=== PATIENT | male | born 1970 | race Two or more races ===

== ENCOUNTER 2025-02-27 18:57 | Inpatient (IN) | payer MEDICAID, OTHER ==
[~2025-02-27] VITALS: Ht 175.3 cm; Wt 74.7 kg
[~2025-02-27 18:57] MED LIST: ATOR-47 PO; CLOP75TA70 PO; FURO20TA4 PO; HYDR-4798 PO; IPRAAER6 PO; LEVO25TA6 PO; NALO1TAB4 PO; PANT40T PO; POTA8TAB38 PO; PREG150C63 PO
[2025-02-27 19:20] LABS: Basophils # (auto) 0.1 10 ^3/uL (0-0.2); Basophils % (auto) 0.8 % (0.0-2.0); Eosinophils # (auto) 0.1 10 ^3/uL (0-0.8); Eosinophils % (auto) 0.7 % (0.0-7.0); Hematocrit 33.4 % (41.0-53.0); Hemoglobin 11.2 g/dL (13.5-17.5); Lymphocytes # (auto) 1.9 10 ^3/uL (0.4-5.4); Lymphocytes % (auto) 16.9 % (10.0-50.0); Mean Corpuscular Hemoglobin 28.2 pg (28.0-32.0); Mean Corpuscular Hgb Conc. 33.6 g/dL (32.0-36.0); Mean Corpuscular Volume 83.8 fL (80.0-100.0); Monocytes # (auto) 0.8 10 ^3/uL (0-1.3); Monocytes % (auto) 6.9 % (0.0-12.0); Neutrophils # (auto) 8.6 10 ^3/uL (1.6-8.6); Neutrophils % (auto) 74.7 % (37.0-80.0); Nucleated Red Blood Cells % 0.1 %; Platelet Count (auto) 219 10^3/uL (140-450); Red Blood Cells 3.98 10^6/uL (4.5-5.90); Red Cell Distribution Width 14.6 % (11.8-14.3); White Blood Cell 11.5 10^3/uL (4.4-10.8)
[2025-02-27 19:35] LABS: Anion Gap 11 (5-15); Carbon Dioxide 22 mmol/L (20-31); Sodium 145 mmol/L (136-145)
--- NOTE | 2025-02-27 19:35 | ED.PDOC ---
History of Present Illness HPI Comments 54 y/o, wheelchair-bound M, with a history of right AKA, is [id number] for 4x day history of shortness of breath. Patient reports on, usually, using his nebulizer 3x/day and states on running out of it 4x days ago. He denies any chest pain, cough, congestion, fever, chills, or further associated symptoms. Chief Complaint: Shortness of Breath Time Seen by MD: 19:25 Reviewed Notes: Nurses Notes, Medications, Allergies Allergies: Coded Allergies: Codeine (Verified Allergy, Unknown, 02/27/25) Morphine (Verified Allergy, Unknown, 02/27/25) Information Source: Patient Mode of Arrival: Ambulatory Severity: Moderate Timing: Days Duration: Since onset Prehospital treatment: None Past Medical History PAST MEDICAL HISTORY: Asthma Past Medical History (Other): Home nebulizer use Surgical History: AKA (Right ) All Other Systems: Reviewed and Negative (Comprehensive systems review obtained and negative except for what is stated in the HPI.) Physical Exam General Appearance: No Apparent Distress, Normal HEENT: Normal ENT Inspection, Pharynx Normal, TMs Normal Neck: Full Range of Motion, Non-Tender, Normal, Normal Inspection Respiratory: Chest Non-Tender, No Accessory Muscle Use, No Respiratory Distress, Wheezing (Diffused scattered wheezes, bilaterally) Cardiovascular: No Edema, No JVD, No Murmur, No Gallop, Normal Peripheral Pulses, Regular Rate/Rhythm Breast Exam: Deferred Gastrointestinal: No Organomegaly, Non Tender, No Pulsatile Mass, Normal Bowel Sounds, Soft Genitalia: Deferred Pelvic: Deferred Rectal: Deferred Extremities: No calf tenderness, Normal capillary refill, Normal inspection, Normal range of motion, Non-tender, No pedal edema Musculoskeletal : Apperance: Normal Neurologic: Alert, program manufacturing leader II-XII nml as Tested, No Motor Deficits, Normal Affect, Normal Mood, No Sensory Deficits Cerebellar Function: Normal Reflexes: Normal Skin: Dry, Normal Color, Warm Lymphatic: No Adenopathy Was a procedure done? Was a procedure done?: No Differential Dx Considerations may include: URI, PNA, PE, PA, viral syndrome, asthma exacerbation, medication noncompliance, among others X-Ray, Labs, Meds, VS Vital Signs Date Time Temp Pulse Resp B/P (MAP) Pulse Ox O2 Delivery O2 Flow Rate FiO2 02/27/25 19:13 97.4 62 16 123/73 (90) 95 97.4 Lab Test 02/27/25 19:09 Range/Units White Blood Count 11.5 H 4.4-10.8 10^3/uL Red Blood Count 3.98 L 4.5-5.90 10^6/uL Hemoglobin 11.2 L 13.5-17.5 g/dL Hematocrit 33.4 L 41.0-53.0 % Mean Corpuscular Volume 83.8 80.0-100.0 fL Mean Corpuscular Hemoglobin 28.2 28.0-32.0 pg Mean Corpuscular Hemoglobin Concent 33.6 32.0-36.0 g/dL Red Cell Distribution Width 14.6 H 11.8-14.3 % Platelet Count 219 140-450 10^3/uL Mean Platelet Volume 9.4 6.9-10.8 fL Neutrophils (%) (Auto) 74.7 37.0-80.0 % Lymphocytes (%) (Auto) 16.9 10.0-50.0 % Monocytes (%) (Auto) 6.9 0.0-12.0 % Eosinophils (%) (Auto) 0.7 0.0-7.0 % Basophils (%) (Auto) 0.8 0.0-2.0 % Neutrophils # (Auto) 8.6 1.6-8.6 10 ^3/uL Lymphocytes # (Auto) 1.9 0.4-5.4 10 ^3/uL Monocytes # (Auto) 0.8 0-1.3 10 ^3/uL Eosinophils # (Auto) 0.1 0-0.8 10 ^3/uL Basophils # (Auto) 0.1 0-0.2 10 ^3/uL Nucleated Red Blood Cells 0.1 % Sodium Level 145 136-145 mmol/L Potassium Level 3.0 L 3.5-5.1 mmol/L Chloride Level 112 H 98-107 mmol/L Carbon Dioxide Level 22 20-31 mmol/L Anion Gap 11 5-15 Blood Urea Nitrogen 12 9-23 mg/dL Creatinine 0.94 0.700-1.30 mg/dL Glomerular Filtration Rate Calc 95 >90 mL/min BUN/Creatinine Ratio 12.8 10.0-20.0 Serum Glucose 127 H 74-106 mg/dL Calcium Level 9.2 8.7-10.4 mg/dL Troponin I High Sensitivity 43 </=54 ng/L B-Type Natriuretic Peptide 2058.17 0-100 pg/mL Time of 1ST Reevaluation: 19:55 Reevaluation 1ST: Unchanged Patient Education/Counseling: Diagnosis, Treatment, Need For Follow Up Family Education/Counseling: Diagnosis, Treatment, Need For Follow Up SEPSIS Sepsis Screen Date sepsis recognized/suspect: Feb 27, 2025 Time Sepsis recognized/suspect: 1902 Recent Procedure: No On Antibiotic Therapy: No Respiratory Rate >20: No Heart Rate >90: No Temp<36 C (96.8 F) or >38.3 C: No SBP <90 or MAP <65 mmHG: No New Acute Mental Status Change: No Is the patient on CPAP, BIPAP,: No Orders/Vitals/Labs Physician Orders Chest Portable (02/27/25 19:03) Electrocardigram (02/27/25 19:03) Troponin-I Hs (02/27/25 22:03) Potassium Er Tablet (Klor-Con Tablet) (02/27/25 20:15) Furosemide Injection (Lasix Injection) (02/27/25 20:15) Aspirin Tablet (02/27/25 20:15) Vital Signs Date Time Temp Pulse Resp B/P (MAP) Pulse Ox O2 Delivery O2 Flow Rate FiO2 02/27/25 19:13 97.4 62 16 123/73 (90) 95 97.4 Laboratory Tests Test 02/27/25 19:09 White Blood Count 11.5 10^3/uL (4.4-10.8) H Departure 1 Departure Time of Disposition: 20:10 Impression: Primary Impression: Acute diastolic (congestive) heart failure Additional Impression: Acute coronary syndrome Disposition: ADMITTED INPATIENT Admit to: Tele Condition: Guarded Discharged With: Self Comments Shortness of Breath with Chest Tightness Chief Complaint: Shortness of breath worsening over 3 days with chest tightness History of Present Illness: 54-year-old male with a history of asthma and right leg amputation presents to the ED with complaints of shortness of breath that has been progressively worsening over the past 3 days. The patient reports partial improvement with albuterol nebulizer treatments at home, but states he has run out of his medication. He also describes chest tightness for the past day. The patient has known asthma but the presentation is concerning for cardiac etiology given the chest tightness and elevated BNP levels. The patient requires admission for management of acute coronary syndrome and acute diastolic congestive heart failure. Review of Systems: Respiratory: Shortness of breath, worsening over 3 days. Cardiovascular: Chest tightness for 1 day. All other systems: Unable to obtain due to acute presentation. Medications: Albuterol nebulizer (recently ran out) Other home medications: Not documented in wealth management director Allergies: No known allergies documented in wealth management director Past Medical History: Asthma Right leg amputation Possible underlying cardiac disease (given current presentation) Past Surgical History: Right above-knee amputation Physical Exam: General: Not documented in wealth management director HEENT: Not documented in wealth management director Cardiovascular: Not documented in wealth management director Respiratory: Mildly diminished breath sounds in bilateral bases Abdomen: Not documented in wealth management director Extremities: Right leg above-knee amputation Neurological: Not documented in wealth management director Lab Results: CBC: - WBC: 11.5 (mildly elevated) - Hemoglobin: 11.2 - Hematocrit: 33.4 - Platelets: 219 Chemistry: - Potassium: 3.0 (low) - Other chemistry values unremarkable Cardiac markers: - Troponin: 43 (within normal limits) - BNP: 2,058 (significantly elevated) Imaging and Other Relevant Results: Chest X-ray: Findings consistent with congestive heart failure Medical Decision Making: Summary Statement: 54-year-old male with history of asthma and right leg amputation presenting with worsening shortness of breath and chest tightness, fo und to have elevated BNP and radiographic evidence of CHF. Problem List: 1. Acute diastolic congestive heart failure 2. Acute coronary syndrome 3. Hypokalemia 4. Asthma 5. Right above-knee amputation Differential Diagnosis: Acute diastolic heart failure, acute coronary syndrome, asthma exacerbation, pneumonia, pulmonary embolism, COPD exacerbation, anemia. ED Course: Patient presented with shortness of breath and chest tightness. Labs revealed elevated BNP, mild leukocytosis, and hypokalemia. Chest X-ray showed findings consistent with CHF. Patient was treated with aspirin and Lasix in the ED. Decision made to admit for management of acute coronary syndrome and acute diastolic heart failure. Assessment and Plan: 1. Acute Diastolic Congestive Heart Failure: - Elevated BNP at 2,058 - Chest X-ray showing findings consistent with CHF - Initiated Lasix in ED - Admit for further management including IV diuresis, daily weights, strict I/Os - Monitor respiratory status and oxygen requirements - Consider echocardiogram to assess cardiac function 2. Acute Coronary Syndrome: - Presenting with chest tightness - Initial troponin within normal limits (43) - Administered aspirin in ED - Admit for serial cardiac enzymes, ECG monitoring - Consider cardiology consultation for management and possible cardiac catheterization 3. Hypokalemia (K 3.0): - Initiate potassium replacement - Monitor levels closely, especially with diuretic therapy - Assess for underlying causes 4. Asthma: - Currently not the primary issue but may be contributing to symptoms - Resume albuterol treatments - Consider adding inhaled corticosteroids 5. Right Above-Knee Amputation: - Ensure appropriate accommodations during hospitalization - Physical therapy consultation as needed Disposition: Admit to telemetry unit under cardiology service Additional Notes: Patient admitted for acute coronary syndrome and acute diastolic congestive heart failure Billing Information: ICD-10: I50.31 - Acute diastolic (congestive) heart failure ICD-10: I20.9 - Acute coronary syndrome, unspecified ICD-10: J45.909 - Unspecified asthma, uncomplicated ICD-10: Z89.611 - Acquired absence of right leg above knee ICD-10: E87.6 - Hypokalemia Critical Care Note Critical Care Time?: Yes (35 min-critical care time only) Critical care comment: Total critical care time: Approximately 36 minutes Due to a high probability of clinically significant, life threatening deterioration, the patient required my highest level of preparedness to i ntervene emergently and I personally spent this critical care time directly and personally managing the patient. This critical care time included obtaining a history; examining the patient; pulse oximetry; ordering and review of studies; arranging urgent treatment with development of a management plan; evaluation of patient's response to treatment; frequent reassessment; and, discussions with other providers. This critical care time was performed to assess and manage the high probability of imminent, life-threatening deterioration that could result in multi-organ failure. It was exclusive of separately billable procedures and treating other patients. Stability Stability form required: No Heart Score Heart Score: Heart Score Response (Comments) Value History Moderate Suspicious 1 EKG Repolarization Disturb 1 Age 45-64 1 Risk Factors 1 or 2 risk factors 1 Troponin Normal limit 0 Total 4 I personally scribed for HOPE BRYANT MD ([email or web address]) on 02/27/25 at 19:34. Electronically submitted by Mark Ley ([email or web address]). HOPE BRYANT MD Feb 27, 2025 19:34
[2025-02-27 19:36] LABS: Calcium 9.2 mg/dL (8.7-10.4)
--- NOTE | 2025-02-27 19:39 | DVH ---
CHEST RADIOGRAPH Indication: SOB Technique: Single frontal view of the chest was obtained Comparison: None FINDINGS: Lines and Tubes: Dual-chamber AICD pacemaker in place pulse generator over the left chest. There are no prior studies for comparison Lungs: Bilateral perihilar airspace disease seen extending into the lower lung [place]. Pleura: No effusion. No pneumothorax. Cardiomediastinal contours: Cardiomegaly Bones: No acute osseous abnormality. IMPRESSION: 1. Findings may represent congestive failure or pneumonia. HS:Y
[2025-02-27 19:41] LABS: BUN/Creatinine Ratio 12.8 (10.0-20.0); Blood Urea Nitrogen 12 mg/dL (9-23)
[2025-02-27 19:50] LABS: Chloride 112 mmol/L (98-107); Glucose 127 mg/dL (74-106)
[2025-02-27] MEDS: ALBUTEROL SULF 2.5 MG/0.5ML(0.5%) NEB SOLN NEB ONE ×2 (20:18→22:30)
[2025-02-27 20:30] VITALS: BP 113/70; PULSE 94; RESP 20; TEMP 98.5; O2SAT 95
[2025-02-27] MEDS: ASPirin 81 mg TAB PO ONE (22:00)
[2025-02-27] MEDS: POTASSIUM CHL 20 Meq TABLET PO ONE (22:00)
[2025-02-27] MEDS ORDERED: POLYETHYLENE GLYCOL 17 GM PWDR PO PRN (22:00)
[2025-02-27] MEDS: predniSONE 20 MG TAB PO ONE (22:00)
[2025-02-27] MEDS: IPRATROPIUM BROM 0.5 MG/2.5ML INH SOL NEB ONE (22:30)
[2025-02-27] MEDS: FUROSEMIDE 20 MG/2 ML VIAL IV ONE ×2 (22:32→22:33)
[2025-02-27] MEDS: ATORVASTATIN 20 MG TAB PO SCH (22:37)
[2025-02-28] VITALS (17 sets, daily range): BP systolic 119–135; BP diastolic 82–89; PULSE 87–107; RESP 16–20; TEMP 97.3–98.4; O2SAT 95–100
--- NOTE | 2025-02-28 01:14 | DVHHPRES ---
History of Present Illness Resident Creating Document: MOI SWAIN RESIDENT History of Present Illness Patient is a 54-year-old male with a significant history of coronary artery disease as explained below presented to the ED with a chief complaint of worsening shortness of breath since the last week. Patient at home takes Lasix daily but apparently he ran out of it his medications week ago and started to have shortness of breath, now NYHA class 3. Patient denied any chest pain, palpitations, headache. Patient reported he currently smokes 4-5 joints of marijuana every day and uses Yupelri med neb and Combivent inhaler as needed, reportedly also ran out of his nebulizer. He he reports of left lower extremity swelling in the last 3-4 days which apparently has gone down. Patient denies any fever, cough, recent sick contacts. Past medical history: Coronary artery disease with [place] x3, multiple coronary angiogram with multiple percutaneous interventions and 7 drug-eluting stents placed over the last 1 year, ischemic cardiomyopathy, heart failure with reduced ejection fraction , peripheral artery disease Past surgical history: Right above-knee amputation, s/p biventricular AICD, intra-aortic balloon pump, multiple PCI with 7 MC Social history: Patient currently smokes 4-5 joints of marijuana every day, denies tobacco, alcohol, any other drug use Home medications: Lasix 20 mg daily, Protonix 40 mg daily, atorvastatin 80, levothyroxine 25 mcg, pregabalin 100 q.i.d., mirtazapine 7.5, Plavix, aspirin Review of Systems Review of Systems Patient seen and examined at the bedside Reports of shortness of breath on walking Denies chest pain, palpitations Allergies: Coded Allergies: Codeine (Verified Allergy, Unknown, 02/27/25) Morphine (Verified Allergy, Unknown, 02/27/25) Medications Current Medications Medications Dose Ordered Sig/El Route Start Time Stop Time Status Last Admin Dose Admin Albuterol 2.5 mg Q6HWA NEB 02/28/25 06:00 Ipratropium [place] 0.5 mg Q6HWA NEB 02/28/25 06:00 Clopidogrel Bisulfate 75 mg DAILY PO 02/28/25 10:00 Aspirin 81 mg DAILY PO 02/28/25 10:00 Furosemide 40 mg DAILY IV 02/28/25 10:00 Acetaminophen/ Hydrocodone Bitart 1 tab Q8HP PRN PO 02/27/25 22:00 Pantoprazole Sodium 40 mg DAILY@0600 PO 02/28/25 06:00 Levothyroxine Sodium 25 mcg QAM@0600 PO 02/28/25 06:00 Atorvastatin Calcium 80 mg HS PO 02/27/25 22:00 02/27/25 22:37 80 MG Polyethylene Glycol 17 gm DAILYPRN PRN PO 02/27/25 22:00 Exam Vital Signs Vital Signs Date Time Temp Pulse Resp B/P (MAP) Pulse Ox O2 Delivery O2 Flow Rate FiO2 02/27/25 23:38 98.5 91 16 113/70 (84) 100 98.5 02/27/25 22:31 Room Air* 0 21 Exam Gen - no pallor, mild icterus, no cyanosis, no clubbing, no LAD, no edema . Skin - Patients skin is warm and dry. HEENT - normocephalic, atraumatic, moist mucous membranes. Neck - full ROM, no LAD, no JVD Pulmonary - B/L equal breath sounds with basilar crackles, no wheezing, no stridor. cardiovascular - faint S1,S2 heard. peripheral pulses normal radial 2+, left dorsalis pedal 2+. capillary refill normal <2 secs. GI - soft, nontender abdomen. no hepatospleenomegaly. Bowel sounds normoactive Neurological - Patient is A/O X 3 . Bilateral upper extremity strength 5/5, left lower extremity strength 5/5, right AKA no facial droop, normal speech, no tremor, no sensory deficiets. Labs/Xrays Labs Test 02/27/25 20:23 02/27/25 19:09 Range/Units Troponin I High Sensitivity 44 </=54 ng/L White Blood Count 11.5 H 4.4-10.8 10^3/uL Red Blood Count 3.98 L 4.5-5.90 10^6/uL Hemoglobin 11.2 L 13.5-17.5 g/dL Hematocrit 33.4 L 41.0-53.0 % Mean Corpuscular Volume 83.8 80.0-100.0 fL Mean Corpuscular Hemoglobin 28.2 28.0-32.0 pg Mean Corpuscular Hemoglobin Concent 33.6 32.0-36.0 g/dL Red Cell Distribution Width 14.6 H 11.8-14.3 % Platelet Count 219 140-450 10^3/uL Mean Platelet Volume 9.4 6.9-10.8 fL Neutrophils (%) (Auto) 74.7 37.0-80.0 % Lymphocytes (%) (Auto) 16.9 10.0-50.0 % Monocytes (%) (Auto) 6.9 0.0-12.0 % Eosinophils (%) (Auto) 0.7 0.0-7.0 % Basophils (%) (Auto) 0.8 0.0-2.0 % Neutrophils # (Auto) 8.6 1.6-8.6 10 ^3/uL Lymphocytes # (Auto) 1.9 0.4-5.4 10 ^3/uL Monocytes # (Auto) 0.8 0-1.3 10 ^3/uL Eosinophils # (Auto) 0.1 0-0.8 10 ^3/uL Basophils # (Auto) 0.1 0-0.2 10 ^3/uL Nucleated Red Blood Cells 0.1 % Sodium Level 145 136-145 mmol/L Potassium Level 3.0 L 3.5-5.1 mmol/L Chloride Level 112 H 98-107 mmol/L Carbon Dioxide Level 22 20-31 mmol/L Anion Gap 11 5-15 Blood Urea Nitrogen 12 9-23 mg/dL Creatinine 0.94 0.700-1.30 mg/dL Glomerular Filtration Rate Calc 95 >90 mL/min BUN/Creatinine Ratio 12.8 10.0-20.0 Serum Glucose 127 H 74-106 mg/dL Calcium Level 9.2 8.7-10.4 mg/dL B-Type Natriuretic Peptide 2058.17 0-100 pg/mL Assessment/Plan Assessment/Plan Acute on chronic heart failure with reduced ejection fraction, NYHA class III Ischemic cardiomyopathy S/p biventricular AICD S/p PCI with the 7 MC - BNP elevated - chest x-ray shows cardiomegaly with pulmonary vascular congestion, bilateral airspace opacities likely fluid overload - ECG showed atrial sensed ventricular paced complexes with QRS more than 120 ms likely RSR in V5 V6 - started on Lasix 40 mg IV - duo nebs q.8 hours - aspirin and Plavix - atorvastatin 80 - last echocardiogram in December 2024 shows left atrial enlargement, right atrial enlargement, left ventricular enlargement, EF less than 20%, severe pulmonary artery hypertension H/o hypothyroidism - levothyroxine 25 mcg Chronic back pain Constipation - continued on [place] - MiraLax PRN PUD prophylaxis: Protonix Goals of care discussed with the patient for over 25 minutes. Full code Time spent: 41 minutes Plan discussed with Dr. Osborne Plan discussed with: Patient My Orders Orders - MOI SWAIN Procedure Category Date Status Time Admit ADMIT 02/27/25 Transmitted 21:59 Oxygen By Nasal RT 02/27/25 Transmitted Cannula 21:59 Color Consultant For YANETH 02/27/25 In Process 24 Hours 21:59 Emergency Dysrhythmia YANETH 02/27/25 In Process Protocol 21:59 Stat Ekg For Chest YANETH 02/27/25 In Process Pain 21:59 Notify Md Of Changes YANETH 02/27/25 In Process From Base 21:59 Albuterol Medneb PHA 02/28/25 In Process (Ventolin Medneb) 06:00 Ipratropium Medneb PHA 02/28/25 In Process (Atrovent Medneb) 06:00 Clopidogrel Bisulfate PHA 02/28/25 In Process (Plavix) 10:00 Aspirin Tablet PHA 02/28/25 In Process 10:00 Furosemide Injection PHA 02/28/25 In Process (Lasix Injection) 10:00 Hydrocodone-Acet PHA 02/27/25 In Process 10/325mg Tab ([place] 22:00 Pantoprazole Tablet PHA 02/28/25 In Process (Protonix Tablet) 06:00 Levothyroxine Tablet PHA 02/28/25 In Process (Synthroid Tablet) 06:00 Atorvastatin (Lipitor) PHA 02/27/25 In Process 22:00 Echo 2d Mode Cardiac US 02/27/25 Logged DOP 21:59 Polyethylene Glycol PHA 02/27/25 In Process 17g Powder (Miralax 22:00 Urinalysis LAB 02/27/25 Logged 21:59 Rapid Influenza A&B LAB 02/27/25 Logged 21:59 Covid19 Antigen Yulia LAB 02/27/25 Logged Date of Service: Feb 27, 2025 Billing Provider: JENNIFER OSBORNE MD Common Visit Codes: [id number] INP/OBS CARE (HIGH) Secondary Visit Codes: [id number] CARE PLAN 30 MINUTES MOI SWAIN RESIDENT Feb 28, 2025 01:14
[2025-02-28 02:54] LABS: Rapid Influenza A Negative (Negative); Rapid Influenza B Negative (Negative)
[2025-02-28 02:55] LABS: COVID19 ANTIGEN SOFIA FIA NEGATIVE (NEGATIVE)
[2025-02-28] MEDS: PANTOPRAZOLE 40 MG TAB PO SCH (05:47)
[2025-02-28] MEDS: LEVOTHYROXINE SODIUM 25 MCG TAB PO SCH (05:47)
[2025-02-28] MEDS ORDERED: ALBUTEROL SULF 2.5 MG/0.5ML(0.5%) NEB SOLN NEB SCH (06:00)
[2025-02-28] MEDS ORDERED: IPRATROPIUM BROM 0.5 MG/2.5ML INH SOL NEB SCH (06:00)
[2025-02-28] MEDS: IPRATROPIUM BROM 0.5 MG/2.5ML INH SOL NEB SCH (06:48)
[2025-02-28] MEDS: ALBUTEROL SULF 2.5 MG/0.5ML(0.5%) NEB SOLN NEB SCH (06:48)
[2025-02-28 08:50] LABS: Basophils # (auto) 0 10 ^3/uL (0-0.2); Basophils % (auto) 0.3 % (0.0-2.0); Eosinophils # (auto) 0 10 ^3/uL (0-0.8); Eosinophils % (auto) 0.3 % (0.0-7.0); Hematocrit 33.6 % (41.0-53.0); Hemoglobin 11.5 g/dL (13.5-17.5); Lymphocytes # (auto) 0.7 10 ^3/uL (0.4-5.4); Lymphocytes % (auto) 6.8 % (10.0-50.0); Mean Corpuscular Hemoglobin 28.9 pg (28.0-32.0); Mean Corpuscular Hgb Conc. 34.3 g/dL (32.0-36.0); Mean Corpuscular Volume 84.3 fL (80.0-100.0); Monocytes # (auto) 0.2 10 ^3/uL (0-1.3); Monocytes % (auto) 1.9 % (0.0-12.0); Neutrophils # (auto) 9.1 10 ^3/uL (1.6-8.6); Neutrophils % (auto) 90.7 % (37.0-80.0); Nucleated Red Blood Cells % 0.1 %; Platelet Count (auto) 204 10^3/uL (140-450); Red Blood Cells 3.98 10^6/uL (4.5-5.90); Red Cell Distribution Width 14.9 % (11.8-14.3)
[2025-02-28 09:08] LABS: Alanine Aminotransferase 35 U/L (7-40); Albumin 4.4 g/dL (3.2-4.8); Alkaline Phosphatase 91 U/L (46-116); Anion Gap 13 (5-15); Aspartate Aminotransferase 27 U/L (<34); BUN/Creatinine Ratio 12.6 (10.0-20.0); Blood Urea Nitrogen 11 mg/dL (9-23); Calcium 9.4 mg/dL (8.7-10.4); Carbon Dioxide 21 mmol/L (20-31); Sodium 145 mmol/L (136-145); Total Protein 7.2 g/dL (5.7-8.2)
[2025-02-28 09:09] LABS: Bilirubin, Total 4.5 mg/dL (0.2-1.0); Chloride 111 mmol/L (98-107); Glucose 160 mg/dL (74-106); Potassium 3.3 mmol/L (3.5-5.1)
[2025-02-28 09:19] LABS: Magnesium 1.9 mg/dL (1.6-2.6)
[2025-02-28] MEDS: ASPirin 81 mg TAB PO SCH (09:53)
[2025-02-28] MEDS: CLOPIDOGREL BISULFATE 75 MG TAB PO SCH (09:53)
[2025-02-28] MEDS: FUROSEMIDE 40 MG/4 ML VIAL IV SCH (09:55)
[2025-02-28] MEDS: HYDROcodone-ACET 10/325MG TAB PO PRN (20:25)
[2025-02-28 20:48] LABS: Urine Bacteria None Seen /hpf (None Seen)
[2025-02-28 21:06] LABS: Urine Blood Negative /uL (Negative); Urine Clarity Clear (Clear); Urine Color Light-Yellow (Yellow); Urine Protein, UAD Negative (Negative); Urine Specific Gravity 1.009 (1.001-1.035); Urine Squamous Epithelial Cell FEW /hpf (<5); Urine Urobilinogen Normal (Negative); Urine WBC 1 /HPF (0-3); Urine pH 6.5 (5.0-9.0)
--- NOTE | 2025-02-28 21:52 | DVHPNRES ---
Progress Note Date Seen: Mar 01, 2025 Resident Creating Document: LUCIE MENDOZA DIMAS Has the PT tested + for MRSA If YES, has PT been informed?: No Medical Necessity Reason Pt with a Central, PICC or Fol: No Subjective Review of Systems Patient is a 54-year-old male with a significant history of coronary artery disease as explained below presented to the ED with a chief complaint of worsening shortness of breath since the last week. Patient at home takes Lasix daily but apparently he ran out of it his medications week ago and started to have shortness of breath, now NYHA class 3. Patient denied any chest pain, palpitations, headache. Patient reported he currently smokes 4-5 joints of marijuana every day and uses Yupelri med neb and Combivent inhaler as needed, reportedly also ran out of his nebulizer. He he reports of left lower extremity swelling in the last 3-4 days which apparently has gone down. Patient denies any fever, cough, recent sick contacts. Past medical history: Coronary artery disease with [place] x3, multiple coronary angiogram with multiple percutaneous interventions and 7 drug-eluting stents placed over the last 1 year, ischemic cardiomyopathy, heart failure with reduced ejection fraction , peripheral artery disease Past surgical history: Right above-knee amputation, s/p biventricular AICD, intra-aortic balloon pump, multiple PCI with 7 MC Social history: Patient currently smokes 4-5 joints of marijuana every day, denies tobacco, alcohol, any other drug use Home medications: Lasix 20 mg daily, Protonix 40 mg daily, atorvastatin 80, levothyroxine 25 mcg, pregabalin 100 q.i.d., mirtazapine 7.5, Plavix, aspirin Patient seen and examined at bedside. patient is feeling of shortness of breaths. Patient reports: No new complaints, Feels better Changes from previous H/P or p: Changes Objective vital signs Vital Sign Date Time Temp Pulse Resp B/P (MAP) Pulse Ox O2 Delivery O2 Flow Rate FiO2 02/28/25 21:45 100 18 100 02/28/25 21:39 Nasal Cannula 2.0 02/28/25 21:39 28 02/28/25 21:00 98.4 119/89 (99) 98.4 Total Intake and Output 02/27/25 02/27/25 02/28/25 14:59 22:59 06:59 Intake Total 0 ml Balance 0 ml medications Current Medications Medications Dose Ordered Sig/El Route Start Time Stop Time Status Last Admin Dose Admin Clopidogrel Bisulfate 75 mg DAILY PO 02/28/25 10:00 02/28/25 09:53 75 MG Aspirin 81 mg DAILY PO 02/28/25 10:00 02/28/25 09:53 81 MG Furosemide 40 mg DAILY IV 02/28/25 10:00 02/28/25 09:55 40 MG Acetaminophen/ Hydrocodone Bitart 1 tab Q8HP PRN PO 02/27/25 22:00 02/28/25 20:25 1 TAB Pantoprazole Sodium 40 mg DAILY@0600 PO 02/28/25 06:00 02/28/25 05:47 40 MG Levothyroxine Sodium 25 mcg QAM@0600 PO 02/28/25 06:00 02/28/25 05:47 25 MCG Atorvastatin Calcium 80 mg HS PO 02/27/25 22:00 02/28/25 20:58 80 MG Polyethylene Glycol 17 gm DAILYPRN PRN PO 02/27/25 22:00 Albuterol 2.5 mg Q8HR NEB 02/28/25 06:00 02/28/25 21:39 2.5 MG Ipratropium [place] 0.5 mg Q8HR NEB 02/28/25 06:00 02/28/25 21:39 0.5 MG Examination General Appearance: Alert, Oriented X3, Cooperative, No acute distress HEENT: Atraumatic, PERRLA, EOMI, Mucous membrane moist/pink Respiratory: Bilateral lower zone crackles Cardiovascular: Regular rate, Normal S1, Normal S2, No murmurs, no chest wall tenderness Abdominal: Normal bowel sounds, Soft, No tenderness, No hepatospenomegaly, No masses Extremities: No clubbing, No cyanosis, No edema, Normal pulses, No tenderness/swelling Skin: No rashes, No breakdown, No significant lesion Neuro: Normal gait, Normal speech, Strength at 5/5 X4 ext, Normal tone, Sensation intact, Cranial nerves 3-12 NL, Reflexes 2+ Psych/Mental Status: Mental status NL, Mood NL laboratory and microbiology Laboratory Tests 02/28/25 08:44 Test 02/28/25 08:44 Range/Units Serum Glucose 160 H 74-106 mg/dL Labs and/or images reviewed: Labs reviewed by me, Image(s) reviewed by me Problem List/Assessment/Plan Problem List/Assessment/Plan Acute on chronic systolic heart failure, ejection fraction less than 20% Acute hypoxic respiratory failure, likely due to systolic heart failure Volume overload, likely due to systolic heart failure Ruled out ACS Systolic heart failure Medication nonadherence Ischemic cardiomyopathy S/p biventricular AICD S/p PCI with the 7 MC H/o hypothyroidism Chronic back pain Constipation Hypokalemia Hyperbilirubinemia Sirs positive * EKGs shows, normal sinus rhythm with no significant ST or T-wave changes * Echocardiogram shows global hypokinesia of left ventricle with EF less than 20% * Serial trop I is within normal limits, BNP is raised at 2057 Plan/recommendation * IV diuretic, Lasix 40 mg daily * Resume home medicine * Strict I&Os * Consulted cardiology, recommended IV diuretic * Repleted potassium DIET: Cardiac diet DVT PROPHYLAXIS: Lovenox CODE STATUS: Goal of care discussed for more than 18 minutes, full code DISPOSITION: Telemetry Patient's status and plan discussed with the patient. Case discussed with Dr. Finnegan. Plan discussed with: Patient, Other (RN) My Orders My Orders Orders - LUCIE MENDOZA RESDIEDWARD Procedure Category Date Status Time * Cardiology Consult CONS 02/28/25 Transmitted 13:53 Basic Metabolic Panel LAB 03/01/25 Verified 04:00 Complete Blood Count LAB 03/01/25 Verified 04:00 Date of Service: Mar 01, 2025 Billing Provider: MAURO FINNEGAN MD Common Visit Codes: [id number] INP/OBS CARE(HIGH) LUCIE MENDOZA RESDIENT Feb 28, 2025 21:52 MAURO FINNEGAN MD Mar 02, 2025 15:33
[2025-03-01] VITALS (13 sets, daily range): BP systolic 102–122; BP diastolic 66–76; PULSE 61–98; RESP 16–20; TEMP 97.5–98.2; O2SAT 94–100
[2025-03-01 06:47] LABS: Sodium 144 mmol/L (136-145)
[2025-03-01 06:48] LABS: Anion Gap 10 (5-15); Calcium 9.8 mg/dL (8.7-10.4); Carbon Dioxide 26 mmol/L (20-31)
[2025-03-01 06:49] LABS: Basophils # (auto) 0 10 ^3/uL (0-0.2); Basophils % (auto) 0.3 % (0.0-2.0); Eosinophils # (auto) 0.1 10 ^3/uL (0-0.8); Eosinophils % (auto) 0.4 % (0.0-7.0); Hematocrit 36.5 % (41.0-53.0); Hemoglobin 12.2 g/dL (13.5-17.5); Lymphocytes # (auto) 2.8 10 ^3/uL (0.4-5.4); Lymphocytes % (auto) 20.3 % (10.0-50.0); Mean Corpuscular Hemoglobin 28.1 pg (28.0-32.0); Mean Corpuscular Hgb Conc. 33.4 g/dL (32.0-36.0); Mean Corpuscular Volume 84.1 fL (80.0-100.0); Monocytes # (auto) 0.9 10 ^3/uL (0-1.3); Monocytes % (auto) 6.5 % (0.0-12.0); Neutrophils # (auto) 10.1 10 ^3/uL (1.6-8.6); Neutrophils % (auto) 72.5 % (37.0-80.0); Nucleated Red Blood Cells % 0.2 %; Platelet Count (auto) 241 10^3/uL (140-450); Red Blood Cells 4.34 10^6/uL (4.5-5.90); Red Cell Distribution Width 14.8 % (11.8-14.3)
[2025-03-01 06:53] LABS: BUN/Creatinine Ratio 15.3 (10.0-20.0); Blood Urea Nitrogen 13 mg/dL (9-23); Glucose 106 mg/dL (74-106)
[2025-03-01 06:54] LABS: Chloride 108 mmol/L (98-107); Potassium 3.1 mmol/L (3.5-5.1)
[2025-03-01] MEDS: POTASSIUM EFFERVESENT TAB 25 MEQ PO ONE (07:30)
--- NOTE | 2025-03-01 07:43 | ECG ---
[facility] Test Date: 2025-02-28 Test Time: 06:16:33 Pat Name: LAUREL MAIER Department: Respiratoy Room: 0212T A Gender: M Compilation Clerk: SELVIN : 1970 Requested By: MOI SWAIN Order Number: [id number] Reading MD: Srinivas Mckenzie Measurements Intervals [place] Rate: 86 P: 114 ME: 215 QRS: 93 QRSD: 161 T: 263 QT: 464 QTc: 555 Interpretive Statements Atrial-sensed ventricular-paced complexes No further analysis attempted due to paced rhythm Electronically Signed On 03-02-2025 21:11:36 PDT by Srinivas Mckenzie Please click the below link to view image of tracing.
--- NOTE | 2025-03-01 07:58 | DVHPN2 ---
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 MN S/P PTCA STENT X7 HFrEF ACUTE DECOMPENSATION S/P AICD PAD THC USE vital signs Vital Sign Date Time Temp Pulse Resp B/P (MAP) Pulse Ox O2 Delivery O2 Flow Rate FiO2 03/01/25 06:03 92 16 100 03/01/25 05:57 Room Air 0.0 03/01/25 05:57 21 03/01/25 05:00 97.5 112/72 (85) 97.5 Total Intake and Output 02/28/25 02/28/25 03/01/25 15:00 23:00 07:00 Intake Total 620 ml 700 ml Output Total 200 ml Balance 620 ml 500 ml medications Current Medications Medications Dose Ordered Sig/El Route Start Time Stop Time Status Last Admin Dose Admin Clopidogrel Bisulfate 75 mg DAILY PO 02/28/25 10:00 02/28/25 09:53 75 MG Aspirin 81 mg DAILY PO 02/28/25 10:00 02/28/25 09:53 81 MG Furosemide 40 mg DAILY IV 02/28/25 10:00 02/28/25 09:55 40 MG Acetaminophen/ Hydrocodone Bitart 1 tab Q8HP PRN PO 02/27/25 22:00 02/28/25 20:25 1 TAB Pantoprazole Sodium 40 mg DAILY@0600 PO 02/28/25 06:00 03/01/25 06:05 40 MG Levothyroxine Sodium 25 mcg QAM@0600 PO 02/28/25 06:00 03/01/25 06:05 25 MCG Atorvastatin Calcium 80 mg HS PO 02/27/25 22:00 02/28/25 20:58 80 MG Polyethylene Glycol 17 gm DAILYPRN PRN PO 02/27/25 22:00 Albuterol 2.5 mg Q8HR NEB 02/28/25 06:00 03/01/25 05:57 2.5 MG Ipratropium [place] 0.5 mg Q8HR NEB 02/28/25 06:00 03/01/25 05:57 0.5 MG laboratory and microbiology Laboratory Tests 03/01/25 05:31 Test 6/19/25 05:31 Range/Units Serum Glucose 106 74-106 mg/dL Problem List SS COMPLEX OF SOB LE EDEMA PT MISSED HIS DIURETIC TREATMENT X 7 DAY PMH: ORGANIC HD CAD HX IF [place] S/P PTCA STENT X7 HFrEF ACUTE DECOMPENSATION S/P AICD PAD THC USE Assessment/Plan RESUME LASIX Plan discussed with: Patient SARAH SHIPMAN MD Mar 01, 2025 07:58
[2025-03-01] MEDS ORDERED: POTASSIUM EFFERVESENT TAB 25 MEQ GT ONE (08:00)
[2025-03-01] MEDS: MAGNESIUM SULFATE 1GM/100ML 100 ML IV ONE (08:27)
[2025-03-01] MEDS: VERQUVO 2.5 MG PO SCH (10:00)
[2025-03-01] MEDS: SPIRONOLACTONE 25 MG TAB PO SCH (10:55)
[2025-03-01] MEDS: POTASSIUM CHLORIDE 40 MEQ, LIDOCAINE 1% (LOCAL ANESTH.) 4 ML in SODIUM CHL 0.9% 250 ML IV ONE ×2 (10:58→15:45)
[2025-03-01] MEDS ORDERED: SPIR25TA8 PO (11:25)
--- NOTE | 2025-03-01 11:26 | DVHDSRES ---
Discharge Summary Date of Admission Resident Creating Document: MOI SWAIN RESIDENT Feb 27, 2025 at 21:59 Date of Discharge: Mar 01, 2025 Admitting Diagnosis Shortness of breaths Labs/Diagnostic Data: Laboratory Results Test 03/01/25 05:31 02/28/25 20:25 02/28/25 08:44 02/28/25 02:20 White Blood Count 14.0 10^3/uL (4.4-10.8) Red Blood Count 4.34 10^6/uL (4.5-5.90) Hemoglobin 12.2 g/dL (13.5-17.5) Hematocrit 36.5 % (41.0-53.0) Mean Corpuscular Volume 84.1 fL (80.0-100.0) Mean Corpuscular Hemoglobin 28.1 pg (28.0-32.0) Mean Corpuscular Hemoglobin Concent 33.4 g/dL (32.0-36.0) Red Cell Distribution Width 14.8 % (11.8-14.3) Platelet Count 241 10^3/uL (140-450) Mean Platelet Volume 10.0 fL (6.9-10.8) Neutrophils (%) (Auto) 72.5 % (37.0-80.0) Lymphocytes (%) (Auto) 20.3 % (10.0-50.0) Monocytes (%) (Auto) 6.5 % (0.0-12.0) Eosinophils (%) (Auto) 0.4 % (0.0-7.0) Basophils (%) (Auto) 0.3 % (0.0-2.0) Neutrophils # (Auto) 10.1 10 ^3/uL (1.6-8.6) Lymphocytes # (Auto) 2.8 10 ^3/uL (0.4-5.4) Monocytes # (Auto) 0.9 10 ^3/uL (0-1.3) Eosinophils # (Auto) 0.1 10 ^3/uL (0-0.8) Basophils # (Auto) 0 10 ^3/uL (0-0.2) Nucleated Red Blood Cells 0.2 % Sodium Level 144 mmol/L (136-145) Potassium Level 3.1 mmol/L (3.5-5.1) Chloride Level 108 mmol/L (98-107) Carbon Dioxide Level 26 mmol/L (20-31) Anion Gap 10 (5-15) Blood Urea Nitrogen 13 mg/dL (9-23) Creatinine 0.85 mg/dL (0.700-1.30) Glomerular Filtration Rate Calc 102 mL/min (>90) BUN/Creatinine Ratio 15.3 (10.0-20.0) Serum Glucose 106 mg/dL (74-106) Calcium Level 9.8 mg/dL (8.7-10.4) Urine Color Light-yellow (Yellow) Urine Clarity Clear (Clear) Urine pH 6.5 (5.0-9.0) Urine Specific [place] 1.009 (1.001-1.035) Urine Protein Negative (Negative) Urine Ketones Negative (Negative) Urine Blood Negative /uL (Negative) Urine Nitrite Negative (Negative) Urine Bilirubin Negative (Negative) Urine Urobilinogen Normal mg/dL (Negative) Urine Leukocyte Esterase Negative /uL (Negative) Urine RBC <1 /hpf (0 - 3) Urine Microscopic WBC 1 /HPF (0-3) Urine Squamous Epithelial Cells Few /hpf (<5) Urine Bacteria None seen /hpf (None Seen) Urine Glucose Normal mg/dL (Normal) Magnesium Level 1.9 mg/dL (1.6-2.6) Total Bilirubin 4.5 mg/dL (0.2-1.0) Aspartate Amino Transferase (AST) 27 U/L (<34) Alanine Aminotransferase (ALT) 35 U/L (7-40) Alkaline Phosphatase 91 U/L (46-116) Total Protein 7.2 g/dL (5.7-8.2) Albumin 4.4 g/dL (3.2-4.8) Influenza Type A Antigen Negative (Negative) Influenza Type B Antigen Negative (Negative) SARS-CoV-2 Antigen (Rapid) Negative (NEGATIVE) Test 02/27/25 20:23 02/27/25 19:09 Troponin I High Sensitivity 44 ng/L (</=54) B-Type Natriuretic Peptide 2058.17 pg/mL (0-100) Other Laboratory Tests 03/01/25 05:31 Brief Hx & Hospital Course: Patient is a 54-year-old male with a significant history of coronary artery disease as explained below presented to the ED with a chief complaint of worsening shortness of breath since the last week. Patient at home takes Lasix daily but apparently he ran out of it his medications week ago and started to have shortness of breath, now NYHA class 3. Patient denied any chest pain, palpitations, headache. Patient reported he currently smokes 4-5 joints of marijuana every day and uses Yupelri med neb and Combivent inhaler as needed, reportedly also ran out of his nebulizer. He he reports of left lower extremity swelling in the last 3-4 days which apparently has gone down. Patient denies any fever, cough, recent sick contacts. Past medical history: Coronary artery disease with [place] x3, multiple coronary angiogram with multiple percutaneous interventions and 7 drug-eluting stents placed over the last 1 year, ischemic cardiomyopathy, heart failure with reduced ejection fraction , peripheral artery disease Past surgical history: Right above-knee amputation, s/p biventricular AICD, intra-aortic balloon pump, multiple PCI with 7 MC Social history: Patient currently smokes 4-5 joints of marijuana every day, denies tobacco, alcohol, any other drug use Home medications: Lasix 20 mg daily, Protonix 40 mg daily, atorvastatin 80, levothyroxine 25 mcg, pregabalin 100 q.i.d., mirtazapine 7.5, Plavix, aspirin Hospital course: Patient was admitted at the line of acute on chronic systolic heart failure likely due to medication nonadherence. The patient was started on IV diuretic Lasix 40 mg daily. Chest x-ray showed cardiomegaly with bilateral lower zone crackles. Echocardiogram showed EF less than 20%, serial trop I was within normal limits, BNP was raised at 2058. Cardiology consulted, recommended IV diuretic. Home medicine was resumed during hospital course. On 03/01/2025, the patient was feeling better since admission. Patient volume overload and pedal edema was resolved with the IV diuretic. Discharge plan discussed with the patient the patient discharged home. Discharge plan: Follow up with the PCP within 1 week of the discharge. Follow up with the Cardiology on outpatient basis. Tablet spironolactone 25 mg daily Continue home meds Condition at Discharge: Good Final Diagnosis/Problems List Acute on chronic systolic heart failure, ejection fraction less than 20% Acute hypoxic respiratory failure, likely due to systolic heart failure Volume overload, likely due to systolic heart failure Ruled out ACS Systolic heart failure Medication nonadherence Ischemic cardiomyopathy S/p biventricular AICD S/p PCI with the 7 MC H/o hypothyroidism Chronic back pain Constipation Hypokalemia Hyperbilirubinemia Sirs positive Discharge Disposition: Home Discharge Instruct/Medications Diet: Cardiac 2g Na,low cholest Activity: No Restrictions, As Tolerated Follow Up/Referral: Follow up with the PCP within 1 week of the discharge. Follow up with the Cardiology on outpatient basis Medications: Tablet spironolactone 25 mg daily Continue home meds Discharge Statement: "Patient was advised to return to the ER or call 911 if any headaches, dizziness, shortness of breath, chest pain, abdominal pain, bleeding, fevers, or worsening of medical condition. Patient was counseled about treatment plan, medications, possible side effects, patientverbalized understanding. All questions were answered to the best of my ability. This discharge took greater then 30 minutes in planning, reviewing documentation, counseling the patient, and discussing with other team members." ASSESSMENT ASSESSMENT Assessment Date of Service: Mar 01, 2025 Billing Provider: MAURO FINNEGAN MD Common Visit Codes: 39732-WIM/OBS DISCH DAY >30min LUCIE MENDOZA RESDIENT Mar 01, 2025 11:26 MAURO FINNEGAN MD Mar 02, 2025 15:34
== END 2025-03-01 20:25 | disposition home or self-care (01) | DRG 133 ==
LOC: ER 18:57 → OVERFLOW 21:59 → TELE-CENTR 02-28 04:38
PROVIDERS: ADMIT Student in an Organized Health Care Education/Training Program; ATTEND Emergency Medicine
DX: J96.01 Acute respiratory failure with hypoxia (principal); I50.43 Acute on chronic combined systolic (congestive) and diastolic (congestive) heart failure; I24.9 Acute ischemic heart disease, unspecified; R65.10 Systemic inflammatory response syndrome (SIRS) of non-infectious origin without acute organ dysfunction; I73.9 Peripheral vascular disease, unspecified; E03.9 Hypothyroidism, unspecified; J45.909 Unspecified asthma, uncomplicated; Z20.822 Contact with and (suspected) exposure to COVID-19; G89.29 Other chronic pain; M54.9 Dorsalgia, unspecified; I25.5 Ischemic cardiomyopathy; K59.00 Constipation, unspecified; E87.6 Hypokalemia; E80.6 Other disorders of bilirubin metabolism; I25.10 Atherosclerotic heart disease of native coronary artery without angina pectoris; I25.2 Old myocardial infarction; Z91.148 Patient's other noncompliance with medication regimen for other reason; Z98.61 Coronary angioplasty status; Z95.810 Presence of automatic (implantable) cardiac defibrillator; Z99.3 Dependence on wheelchair; Z89.611 Acquired absence of right leg above knee; Z88.5 Allergy status to narcotic agent
CPT/HCPCS: 36415; 71045; 80048; 80053; 81001; 83735; 83880; 84484; 85025; 87426; 87804; 93005; 93306; 94640; 96374; 99291; G0378; J2003